=== PATIENT | female | born 1980 | race Two or more races ===

== ENCOUNTER 2021-03-12 09:42 | Outpatient (CLI) | payer OTHER | END 2021-03-12 09:50 | disposition home or self-care (01) | LOC: SONOGRAMA 09:42 | PROVIDERS: ATTEND Pathology Anatomic Pathology & Clinical Pathology | DX: E04.1 Nontoxic single thyroid nodule (principal) ==

== ENCOUNTER 2023-03-22 23:59 | Inpatient (IN) | payer OTHER ==
[~2023-03-22] VITALS: Ht 157.5 cm; Wt 74.4 kg
[2023-03-23] MEDS ORDERED: PRENATAL CAPLE1 EAC1 PO (00:32)
[2023-03-23] MEDS ORDERED: FOLIC ACID20 MG PO (00:32)
== END 2023-03-25 12:48 | disposition home or self-care (01) | DRG 807 ==
LOC: OB/GYN 23:59 → LDR 23:59 → OB/GYN 03-23 01:56
PROVIDERS: ADMIT Specialist; ATTEND Specialist
PROC: 10E0XZZ Delivery of Products of Conception, External Approach (ICD-10-PCS; principal; 2023-03-22)
PROC: 0HQ9XZZ Repair Perineum Skin, External Approach (ICD-10-PCS; 2023-03-22)
PROC: 4A1HXCZ Monitoring of Products of Conception, Cardiac Rate, External Approach (ICD-10-PCS; 2023-03-22)
DX: O70.0 First degree perineal laceration during delivery (principal); Z37.0 Single live birth; Z3A.38 38 weeks gestation of pregnancy; Z20.822 Contact with and (suspected) exposure to COVID-19